=== PATIENT | female | born 1970 | race Caucasian/White ===

== ENCOUNTER 2018-01-11 17:41 | Emergency (ER) | payer MEDICAID, OTHER ==
--- NOTE | 2018-01-11 19:01 | EDM.PDOC ---
ED HPI GENERAL MEDICAL PROBLEM - General Chief Complaint: Skin Complaint Stated Complaint: MAY HAVE SHINGLES OR MRSA Time Seen by Provider: 01/11/18 18:25 Source of Information: Reports: Patient History Limitations: Reports: No Limitations - History of Present Illness INITIAL COMMENTS - FREE TEXT/NARRATIVE: 48-year-old female presents for evaluation and treatment of a rash. Areas involved include her bilateral arms, bilateral legs and abdomen and groin. Reports that she has been noticed the rash last 3-4 weeks. First appeared on the right forearm but now has spread. She reports associated symptoms of pruritus. Patient also reports that she is expressing purulent discharge from the areas. She also reports she has a hoarse voice. No fevers, chills, nausea, vomiting, chest pain, shortness of breath or throat swelling. She questions if she has shingles. Also reports that her boyfriend's daughter was recently diagnosed with MRSA and she has been exposed to this. Duration: Week(s): (3) Left Leg Pain Score (Numeric/FACES): 6 - Related Data Allergies Allergy/AdvReac Type Severity Reaction Status Date / Time ampicillin Allergy Hives Verified 01/11/18 18:06 Home Meds: Home Meds Albuterol [Proair HFA] 1 puff INH Q6H PRN 01/11/18 [History] Amitriptyline [Elavil] 25 - 50 mg PO BEDTIME 01/11/18 [History] Doxycycline [Vibramycin] 100 mg PO BID #20 cap 01/11/18 [Rx] Ranitidine [Zantac] 75 mg PO TID PRN 01/11/18 [History] Past Medical History Gastrointestinal History: Reports: GERD Neurological History: Reports: Migraines Psychiatric History: Reports: Anxiety, Depression Hematologic History: Reports: Anemia - Infectious Disease History Infectious Disease History: Reports: Chicken Pox, Shingles - Past Surgical History GI Surgical History: Reports: Cholecystectomy Female Surgical History: Reports: Hysterectomy, Nephrectomy Other Female Surgeries/Procedures: Patient donated L kidney Social & Family History - Family History Family Medical History: Noncontributory - Tobacco Use Smoking Status *Q: Current Every Day Smoker Years of Tobacco use: 31 Packs/Tins Daily: 1 - Recreational Drug Use Recreational Drug Use: No ED ROS GENERAL - Review of Systems Review Of Systems: See Below Constitutional: Denies: Fever HEENT: Reports: Other (reports a horse voice). Denies: Throat Swelling Respiratory: Denies: Shortness of Breath Cardiovascular: Denies: Chest Pain GI/Abdominal: Denies: Nausea, Vomiting Skin: Reports: Pruritis, Rash (groin, bilateral arms, bilateral legs, abdomen; drainage) ED EXAM, SKIN/RASH Exam: See Below Exam Limited By: No Limitations General Appearance: Alert, WD/WN, No Apparent Distress Respiratory/Chest: No Respiratory Distress, Lungs Clear, Normal Breath Sounds Cardiovascular: Normal Peripheral Pulses, Regular Rate, Rhythm, No Murmur Neurological: Alert, Oriented, Normal Cognition Psychiatric: Normal Affect, Normal Mood Skin: Warm, Dry, Normal Color Location, Skin: Abdomen, Upper Extremity, Right, Upper Extremity, Left, Lower Extremity, Right, Lower Extremity, Left Characteristics: Macular, Maculopapular, Other (scaling macules to the groin and bilateral arms ranging in size from 1cm to 3-4cm erythematous, scaling border with casas centers; 1cm maculopapular areas to the bilateral legs) Course - Vital Signs Last Recorded V/S: Last Vital Signs Temp 36.4 C 01/11/18 18:00 Pulse 86 01/11/18 18:00 Resp 18 01/11/18 18:00 BP 117/76 01/11/18 18:00 Pulse Ox 97 01/11/18 18:00 - Re-Assessments/Exams Free Text/Narrative Re-Assessment/Exam: 01/11/18 18:55 Will try on a course of doxycycline for suspected cellulitis. Will have her follow up with family medicine. Instructed she may require biopsy if she continues to have symptoms. Discharge instructions as documented. Departure - Departure Time of Disposition: 18:58 Disposition: Home, Self-Care 01 Condition: Fair Clinical Impression: Skin rash - Discharge Information Prescriptions: Doxycycline [Vibramycin] 100 mg PO BID #20 cap Instructions: Rash, [id number] Referrals: PCP,None [Primary Care Provider] - Forms: ED Department Discharge Additional Instructions: Doxycycline 1 Twice a day for 10 days. Take this with food. Avoid sunlight as this medication will make you photosensitive. [id number] Benadryl, Claritin or Zyrtec as needed for pruritus. Follow-up with family medicine if your symptoms have not improved much within 2 weeks. He may require biopsies for further evaluation.reecommend Mary Zulema at the [facility]. Call [phone] to schedule with her. Recommend disposing of your razor. Do not shave for the next 10 days. Please return to the ER if your symptoms change or worsen.
== END 2018-01-11 19:20 | disposition home or self-care (01) ==
LOC: JD.ED 17:41
DX: R21 Rash and other nonspecific skin eruption (principal); Z88.1 Allergy status to other antibiotic agents; F17.210 Nicotine dependence, cigarettes, uncomplicated
CPT/HCPCS: 87070; 87077; 87186; 99283

== ENCOUNTER 2018-01-25 13:12 | Emergency (ER) | payer MEDICAID ==
--- NOTE | 2018-01-25 14:49 | EDM.PDOC ---
ED HPI GENERAL MEDICAL PROBLEM - General Chief Complaint: Skin Complaint Stated Complaint: STAPH AND STREP NOT BETTER 2 ROUNDS OF ANTIBIOTICS Time Seen by Provider: 01/25/18 14:16 Source of Information: Reports: Patient History Limitations: Reports: No Limitations - History of Present Illness INITIAL COMMENTS - FREE TEXT/NARRATIVE: Patient present to the E.D. complaining of a rash to her arms, armpits, abdomen , vaginal, and posterior legs. Patient did shave her vagina, armpits, and also legs with a new razor with lotion on it prior to going into a hot tub. The redness was present to the vagina area prior to going into the hot tub. Since then the rash has worsened.Patient has been on 2 rounds ABX including doxycycline and also Bactrim along with mupirocin topical solution with no improvements. Has not improved with antibiotic therapy. This is suggesting the patient has a yeast infection. She was also positive for staph and also group b strep on cultures obtained 2 weeks ago with initial evaluation in the ED. Currently patient is not feverish, or experiencing any dysuria, n/v, chills, or any additional complaint. No history of similar symptoms. Groin Pain Score (Numeric/FACES): 9 - Related Data Allergies Allergy/AdvReac Type Severity Reaction Status Date / Time ampicillin Allergy Hives Verified 01/25/18 13:38 Home Meds: Home Meds Albuterol [Proair HFA] 1 puff INH Q6H PRN 01/11/18 [History] Amitriptyline [Elavil] 25 - 50 mg PO BEDTIME 01/11/18 [History] Ranitidine [Zantac] 75 mg PO TID PRN 01/11/18 [History] Fluconazole [Diflucan] 150 mg PO ONETIME #1 tab 01/25/18 [Rx] Past Medical History Gastrointestinal History: Reports: GERD Neurological History: Reports: Migraines Psychiatric History: Reports: Anxiety, Depression Hematologic History: Reports: Anemia - Infectious Disease History Infectious Disease History: Reports: Chicken Pox, Shingles - Past Surgical History GI Surgical History: Reports: Cholecystectomy Female Surgical History: Reports: Hysterectomy, Nephrectomy Other Female Surgeries/Procedures: Patient donated L kidney Social & Family History - Family History Family Medical History: Noncontributory - Tobacco Use Smoking Status *Q: Current Every Day Smoker Years of Tobacco use: 31 Packs/Tins Daily: 1 - Recreational Drug Use Recreational Drug Use: No ED ROS GENERAL - Review of Systems Review Of Systems: ROS reveals no pertinent complaints other than HPI. ED EXAM, SKIN/RASH Exam: See Below Exam Limited By: No Limitations General Appearance: Alert, WD/WN, No Apparent Distress Ears: Hearing Grossly Normal Nose: Normal Inspection Course - Vital Signs Last Recorded V/S: Last Vital Signs Temp 97.9 F 01/25/18 13:33 Pulse 83 01/25/18 13:33 Resp 16 01/25/18 13:33 BP 110/84 01/25/18 13:33 Pulse Ox 98 01/25/18 13:33 - Orders/Labs/Meds Meds: Medications Discontinued Medications Generic Name Dose Route Start Last Admin Trade Name Bharati PRN Reason Stop Dose Admin Fluconazole 150 mg 01/25/18 14:41 01/25/18 15:01 Diflucan PO 01/25/18 14:42 150 mg ONETIME ONE Administration - Re-Assessments/Exams Free Text/Narrative Re-Assessment/Exam: Patient has on examination findings for vaginal candidiasis. Rash to the vaginal area is beefy red looking sharply demarcated with no draining lesions present. In addition she has multiple small lesions to her arms, posterior legs , and belly. It is described as maculopapular with scabs present with no drainage noted as well. I suspect there may be a accommodation of yeast and also hot tub pseudomonas. I have elected to proceed with fluconazole 150 mg by mouth 1 or repeated in 72 hours. Will not start a additional antibiotic at this time. Will see if this improves with the fluconazole. In addition topical Lamisil will be applied for a contact barrier. Will have patient follow up with PCP this week and if still no improvements patient will require evaluation by hackler doll wigs for definitive diagnosis. Patient may require a punch biopsy of these lesions but can be determined by the [facility]. I elected to give the patient is a prescription for Cipro 500 mg one tab twice a day for 10 days. This will be started this next Tuesday if the rash is not improving. Patient agrees with plan. Discharge instructions as documented. Departure - Departure Time of Disposition: 14:49 Disposition: Home, Self-Care 01 Condition: Good Clinical Impression: Skin rash, Candidiasis of the genitals, female - Discharge Information Prescriptions: Fluconazole [Diflucan] 150 mg PO ONETIME #1 tab Instructions: Vaginal Yeast Infection, Adult, Skin Yeast Infection Referrals: PCP,Not In Area [Primary Care Provider] - Forms: ED Department Discharge Additional Instructions: You were administered fluconazole one tab here in the ED. Take the second tablet of fluconazole this coming Tuesday. In addition will have you apply Lamisil to the genital area twice daily. He may bathe with soap water. Ensure adequate rinsing of soaps. Suggest not utilizing any scented soaps. Keep area dry. Apply the topical cream for the next 7 days. Will not start you on a third antibiotic at this time. This may be hot tub pseudomonas to your extremities. But at this point will treat with a antifungal and see if this dissipates. Will have you follow-up with your primary care provider the end of this week. If not improving. He may require evaluation by a [facility] wigs if unable to diagnose. Return to the ED if you develop any new or worsening symptoms.
[2018-01-25] MEDS: Fluconazole 150 MG Tab PO ONE (15:01)
== END 2018-01-25 15:08 | disposition home or self-care (01) ==
LOC: JD.ED 13:12
DX: B37.49 Other urogenital candidiasis (principal); F17.210 Nicotine dependence, cigarettes, uncomplicated; Z88.1 Allergy status to other antibiotic agents; Z79.899 Other long term (current) drug therapy
CPT/HCPCS: 99283; A9270